=== PATIENT | female | born 1995 | race Caucasian/White ===

== ENCOUNTER 2021-04-05 02:03 | Outpatient (CLI) | payer OTHER ==
[~2021-04-05 02:03] MED LIST: BACTROBAN OINT22 GM EXT; COLACE 100MG C100 MG PO; DELSYM30 MG/5 ML PO; FERROUS SULFAT325 M2 PO; FLONASE 0.05% N16 GM; IBUPROFEN600 MG PO; KEFLEX CAP 500500 MG PO; LORTAB 5-325 M1 EACH PO; MACROBID 100 M100 MG PO; NAPROSYN EC 37375 MG PO; NORCO 5-325 TA1 EACH PO; PRENATAL VITAM1 EAC6 PO; ZITHROMAX250 MG PO; ZYRTEC10 MG PO
[2021-04-05] MEDS ORDERED: IBUPROFEN600 MG PO (12:34)
[2021-04-05] MEDS ORDERED: DOCUSATE SODIU100 MG PO (12:34)
[2021-04-05] MEDS ORDERED: HYDROCODON-ACE1 EAC4 PO (12:34)
== END 2021-04-05 05:24 | disposition home or self-care (01) ==
LOC: GENOP 02:03
DX: Z53.8 Procedure and treatment not carried out for other reasons (principal)
CPT/HCPCS: 81001; 83518; 96360

== ENCOUNTER 2021-04-05 10:20 | Inpatient (IN) | payer OTHER ==
[~2021-04-05] VITALS: Ht 154.9 cm; Wt 67.6 kg
[2021-04-05] MEDS ORDERED: HYDROCODON-ACE1 EAC4 PO (12:34)
[2021-04-05] MEDS ORDERED: IBUPROFEN600 MG PO (12:34)
[2021-04-05] MEDS ORDERED: DOCUSATE SODIU100 MG PO (12:34)
[2021-04-05 12:47] LABS: HEMOGLOBIN 12.4 gm/dl (12.3-15.3); RED BLOOD COUNT 4.29 M/UL (4.00-5.10); WHITE BLOOD COUNT 12.3 K/UL (4.5-11.0)
[2021-04-06 05:57] LABS: HEMOGLOBIN 9.6 gm/dl (12.3-15.3)
== END 2021-04-07 14:10 | disposition home or self-care (01) | DRG 788 ==
LOC: GENOP 10:20 → OB 12:24
PROVIDERS: ADMIT Obstetrics & Gynecology
PROC: 4A1HXCZ Monitoring of Products of Conception, Cardiac Rate, External Approach (ICD-10-PCS; 2021-04-05)
PROC: 10D00Z1 Extraction of Products of Conception, Low, Open Approach (ICD-10-PCS; principal; 2021-04-05 13:33)
DX: O60.14X0 Preterm labor third trimester with preterm delivery third trimester, not applicable or unspecified (principal); Z20.822 Contact with and (suspected) exposure to COVID-19; O34.211 Maternal care for low transverse scar from previous cesarean delivery; Z3A.36 36 weeks gestation of pregnancy; Z37.0 Single live birth
CPT/HCPCS: 36415; 81001; 82800; 83518; 85014; 85018; 85025; 90715; 96360; C9113; J0690; J1885; J2274; J2405; J2590; J3010; J7120; U0002